=== PATIENT | female | born 1990 | race Two or more races ===

== ENCOUNTER 2016-08-26 15:42 | Emergency (ER) | payer OTHER ==
[~2016-08-26] VITALS: Ht 167.6 cm; Wt 90.7 kg
[2016-08-26 16:08] VITALS: BP 111/64
[2016-08-26] MEDS ORDERED: AMOX-999 PO (16:11)
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
--- NOTE | 2016-08-26 18:01 | NUR ---
DR PRIEST ASSESSING THE PT AT BEDSIDE
[2016-08-26] MEDS ORDERED: LIDOCAINE 1% ED 50 ML ONE (18:18)
--- NOTE | 2016-08-26 19:08 | NUR ---
DR PRIEST AT BEDSIDE REMOVING SEWING NEEDLE ON RIGHT FOOT
[2016-08-26] MEDS ORDERED: BACITRACIN OINT 500 UNITS/GM PKT TP ONE (19:17)
--- NOTE | 2016-08-26 19:19 | NUR ---
REPORT RECEIVED FROM FLORENTIN SHOEMAKER
[2016-08-26 19:33] VITALS: BP 110/58
--- NOTE | 2016-08-26 19:33 | NUR ---
Patient discharged with v/s stable. Written and verbal after care instructions given and explained. Patient alert, oriented and verbalized understanding of instructions. Wheel Chair Assisted with to car. All questions addressed prior to discharge. ID band removed. Patient advised to follow up with PMD. Rx of NORCO, MOTRIN given. Patient educated on indication of medication including possible reaction and side effects. Opportunity to ask questions provided and answered.
== END 2016-08-26 19:33 | disposition home or self-care (01) ==
LOC: MED 15:42
DX: S90.851A Superficial foreign body, right foot, initial encounter (principal); W46.0XXA Contact with hypodermic needle, initial encounter; Y93.01 Activity, walking, marching and hiking; Y92.89 Other specified places as the place of occurrence of the external cause; Y99.8 Other external cause status
CPT/HCPCS: 73660; 99284; J2001

== ENCOUNTER 2016-09-08 19:56 | Emergency (ER) | payer OTHER ==
[~2016-09-08] VITALS: Ht 162.6 cm; Wt 90.7 kg
[~2016-09-08 19:56] MED LIST: AMOX-999 PO
[2016-09-08 20:20] VITALS: BP 124/72
--- NOTE | 2016-09-08 21:21 | NUR ---
TO ER BED 6
[2016-09-08] MEDS ORDERED: LIDOCAINE/EPI 1% 1:100000 20 ML VIAL INJ ONE (21:22)
[2016-09-08] MEDS ORDERED: NEOMYCIN/POLYMYXIN/BACITRACIN 0.9 GM/1 PKT TP ONE (21:23)
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
--- NOTE | 2016-09-08 22:45 | NUR ---
Patient discharged with v/s stable. Written and verbal after care instructions given and explained. Patient alert, oriented and verbalized understanding of instructions. Ambulatory with steady gait. All questions addressed prior to discharge. ID band removed. Patient advised to follow up with PMD. Rx of MOTRIN 600MG given. Patient educated on indication of medication including possible reaction and side effects. Opportunity to ask questions provided and answered.
[2016-09-08 23:12] VITALS: BP 122/71
== END 2016-09-08 22:45 | disposition home or self-care (01) ==
LOC: MED 19:56
DX: S41.111A Laceration without foreign body of right upper arm, initial encounter (principal); W31.89XA Contact with other specified machinery, initial encounter; Y93.89 Activity, other specified; Y92.89 Other specified places as the place of occurrence of the external cause; Y99.8 Other external cause status
CPT/HCPCS: 12032; 99284; J2001

== ENCOUNTER 2016-09-21 17:22 | Emergency (ER) | payer OTHER ==
[~2016-09-21] VITALS: Ht 162.6 cm; Wt 90.7 kg
[~2016-09-21 17:22] MED LIST changes: -AMOX-999 PO; +AUGMENTIN 500 M1 TAB PO
[2016-09-21 17:38] VITALS: BP 123/65
--- NOTE | 2016-09-21 19:43 | NUR ---
Note aguila in [facility] - 09/21/16 at 1950 by HANH PT TAKEN TO [facility] Addendum: 09/21/16 at 1949 by HANH Oswaldo sheehan in [facility] - 09/21/16 at 1950 by EVELYNEO PT TAKEN TO 3
--- NOTE | 2016-09-21 20:15 | NUR ---
[place] to right axilla removed. Alonzo well.
--- NOTE | 2016-09-21 20:30 | NUR ---
Patient discharged with v/s stable. Written and verbal after care instructions given and explained. Patient verbalized understanding. Ambulatory with steady gait. All questions addressed prior to discharge. Advised to follow up with PMD.
== END 2016-09-21 20:30 | disposition home or self-care (01) ==
LOC: MED 17:22
DX: L98.499 Non-pressure chronic ulcer of skin of other sites with unspecified severity (principal); Z48.01 Encounter for change or removal of surgical wound dressing

== ENCOUNTER 2016-10-19 20:35 | Emergency (ER) | payer OTHER ==
[~2016-10-19] VITALS: Ht 162.6 cm; Wt 90.7 kg
[2016-10-19 20:56] VITALS: BP 114/69
--- NOTE | 2016-10-19 22:15 | NUR ---
TO ER BED 5
--- NOTE | 2016-10-19 22:15 | NUR ---
PATIENT PRESENTS TO ED WITH C/O DIZZINESS AND GEN WEAKNESS X 2 DAYS. . PT DENIES N/V/D; SKIN IS PINK/WARM/DRY; AAOX4 WITH EVEN AND STEADY GAIT; LUNGS CLEAR BL; HR EVEN AND REGULAR; PT DENIES ANY FEVER, CP, SOB, OR COUGH AT THIS TIME; PATIENT STATES PAIN OF 0/10 AT THIS TIME; VSS; PATIENT POSITIONED FOR COMFORT; HOB ELEVATED; BEDRAILS UP X2; BED DOWN. ER MD MADE AWARE OF PT STATUS.
[2016-10-19] MEDS ORDERED: NACL 0.9% 1,000 ML IV ONE (23:25)
[2016-10-19 23:37] LABS: BASOPHILS # (AUTO) 0.3 K/uL (0.00-0.22); BASOPHILS % (AUTO) 3.4 % (0.0-2.0); EOSINOPHILS # (AUTO) 0.2 K/uL (0-0.4); EOSINOPHILS % (AUTO) 2.4 % (0.0-4.0); HEMATOCRIT 37.6 % (36-48); HEMOGLOBIN 11.9 g/dL (12.0-16.0); LYMPHOCYTES # (AUTO) 3.6 K/uL (2.5-16.5); LYMPHOCYTES % (AUTO) 42.7 % (20.5-51.1); MEAN CORPUSCULAR HEMOGLOBIN 29 pg (27-31); MEAN CORPUSCULAR HGB CONC 32 g/dL (33-37); MEAN CORPUSCULAR VOLUME 92 fL (80-94); NEUTROPHILS # (AUTO) 3.4 K/uL (1.8-7.7); NEUTROPHILS % (AUTO) 39.5 % (42.2-75.2); PLATELET COUNT (AUTO) 363 K/uL (140-450); RED BLOOD CELL COUNT(AUTO) 4.08 MIL/uL (4.20-5.40); RED CELL DISTRIBUTION WIDTH 13.9 % (11.6-13.7); WHITE BLOOD COUNT (AUTO) 8.5 K/uL (4.8-10.8)
[2016-10-19 23:54] LABS: ALBUMIN 3.5 g/dL (3.4-5.0); ANION GAP 11.6 (8-16); CALCIUM 8.5 mg/dL (8.5-10.1); CARBON DIOXIDE 28.8 mmol/L (21-32); CREATININE 0.7 mg/dL (0.6-1.3); POTASSIUM 4.4 mmol/L (3.5-5.1); TOTAL BILIRUBIN 0.2 mg/dL (0.0-1.0); TOTAL PROTEIN, SERUM 7.2 g/dL (6.4-8.2)
[2016-10-19 23:55] LABS: INR 1.1 (0.8-1.2); PARTIAL THROMBOPLASTIN TIME 28.1 secs (22-35.6)
--- NOTE | 2016-10-20 00:32 | NUR ---
IV removed, catheter intact and site benign. Applied folded 4x4 gauze and tape to stop bleeding.
--- NOTE | 2016-10-20 00:33 | NUR ---
Patient discharged with v/s stable. Written and verbal after care instructions given and explained. Patient alert, oriented and verbalized understanding of instructions. Ambulatory with steady gait. All questions addressed prior to discharge. ID band removed. Patient advised to follow up with PMD. Rx of MECLIZINE 25MG given. Patient educated on indication of medication including possible reaction and side effects. Opportunity to ask questions provided and answered.
[2016-10-20 00:34] VITALS: BP 118/84
== END 2016-10-20 00:34 | disposition home or self-care (01) ==
LOC: MED 20:35
DX: R42 Dizziness and giddiness (principal)
CPT/HCPCS: 36415; 80053; 81002; 81025; 85025; 85610; 85730; 96360; 99284; J7030

== ENCOUNTER 2017-09-29 19:43 | Emergency (ER) | payer OTHER ==
[~2017-09-29] VITALS: Ht 175.3 cm; Wt 88.5 kg
[2017-09-29 19:45] VITALS: BP 145/79
[2017-09-29] MEDS ORDERED: MECLIZINE 25 MG TAB PO ONE (20:35)
[2017-09-29] MEDS ORDERED: ACETAMINOPHEN EXTRA STRENGTH 500 MG TAB PO ONE (20:35)
[2017-09-29 20:58] LABS: APPEARANCE,URINE CLEAR (CLEAR); BILIRUBIN,URINE NEGATIVE (NEGATIVE); BLOOD, URINE TRACE-I (NEGATIVE); LEUKOCYTE ESTERASE ,URINE NEGATIVE (NEGATIVE); NITRITE, URINE NEGATIVE (NEGATIVE); PH,URINE 5.5 (5.0-9.0); UGLUCOSE NEGATIVE (NEGATIVE)
[2017-09-29 21:07] LABS: COLOR,URINE STRAW (YELLOW)
[2017-09-29 21:08] LABS: BARBITURATE, URINE NEG. ng/ml (NEG <=200); BENZODIAZEPINE, URINE NEG. ng/mL (NEG <=200); CANNABINOID, URINE NEG. ng/mL (NEG <=50); COCAINE, URINE NEG. ng/mL (NEG <=300); OPIATE, URINE NEG. ng/mL (NEG <=2000); PHENCYCLIDINE SCREEN,URINE NEG. ng/mL (NEG <=25)
[2017-09-29 21:21] LABS: RBC,URINE NONE SEEN /HPF (0-5); WBC,URINE NONE SEEN /HPF (0-5)
[2017-09-29 21:45] VITALS: BP 139/81
== END 2017-09-29 21:45 | disposition home or self-care (01) ==
LOC: MED 19:43
DX: R07.89 Other chest pain (principal); F41.9 Anxiety disorder, unspecified; F17.210 Nicotine dependence, cigarettes, uncomplicated
CPT/HCPCS: 80305; 81001; 81025; 99284; J8597

== ENCOUNTER 2017-10-20 13:12 | Emergency (ER) | payer OTHER ==
[~2017-10-20] VITALS: Ht 162.6 cm; Wt 81.6 kg
[2017-10-20 13:35] VITALS: BP 128/55
--- NOTE | 2017-10-20 14:40 | NUR ---
NO ANSWER WHEN CALLED FOR BED
--- NOTE | 2017-10-20 14:47 | NUR ---
NO ANSWER WHEN CALLED FOR BED
--- NOTE | 2017-10-20 14:47 | NUR ---
Slick sheehan in ED - 10/20/17 at 1502 by MEDPriscilaKD PATIENT LEFT WITHOUT BEING SEEN BY . NO FURTHER CARE PROVIDED FOR PATIENT.
--- NOTE | 2017-10-20 14:50 | NUR ---
PT RETURNED TO ER LOBBY. WAITING TO BE CALLED FOR BED
--- NOTE | 2017-10-20 15:00 | NUR ---
PATIENT AMBULATED TO BED 11.
--- NOTE | 2017-10-20 15:04 | NUR ---
27 YO F PT BIB SELF W/ C/O CENTRALLY LOCATED CHEST PAIN, NON-RADIATING 9/10 SHARP/THROBBING SINCE LAST NIGHT AROUND 11PM, WITH SOB. DENIES N/V/DIZZINESS. DENIES FEVER/CHILLS/SWEATS. SKIN IS WARM AND DRY TO THE TOUCH. PT PRESENTS WITH A RASH ON HER BREASTS BILATERALLY, BUT REPORTS TO WEARING A TIGHT BRA THE LAST FEW DAYS. PT AAO X4. GCS 15. CMS INTACT. RR EVEN AND UNLABORED. LUNGS BILATERALLY CLEAR. ABD SOFT, NON-TENDER. ER MD CLARK NOTIFIED. PT NEEDS MET. SAFETY PRECAUTIONS IN PLACE. WILL CONTINUE TO MONITOR.
[2017-10-20] MEDS ORDERED: ONDANSETRON 4 MG/2 ML VIAL IVP ONE (15:25)
[2017-10-20] MEDS ORDERED: MORPHINE SULFATE 2 MG/ML SYR IVP ONE (15:25)
[2017-10-20] MEDS ORDERED: LORazepam 2 MG/ML VIAL IVP ONE (15:25)
--- NOTE | 2017-10-20 15:43 | NUR ---
xray at bedside at this time.
[2017-10-20 16:06] LABS: BASOPHILS % (AUTO) 0.7 % (0.0-2.0); EOSINOPHILS # (AUTO) 0.1 K/uL (0-0.4); EOSINOPHILS % (AUTO) 0.9 % (0.0-4.0); HEMATOCRIT 40.7 % (36-48); HEMOGLOBIN 13.9 g/dL (12.0-16.0); LYMPHOCYTES # (AUTO) 2.4 K/uL (2.5-16.5); LYMPHOCYTES % (AUTO) 35.2 % (20.5-51.1); MEAN CORPUSCULAR HEMOGLOBIN 31 pg (27-31); MEAN CORPUSCULAR HGB CONC 34 g/dL (33-37); MEAN CORPUSCULAR VOLUME 91.7 fL (80-94); MONOCYTES # (AUTO) 0.6 K/uL (0.8-1.0); MONOCYTES % (AUTO) 9.4 % (1.7-9.3); NEUTROPHILS # (AUTO) 3.6 K/uL (1.8-7.7); NEUTROPHILS % (AUTO) 53.8 % (42.2-75.2); PLATELET COUNT (AUTO) 338 K/uL (140-450); RED BLOOD CELL COUNT(AUTO) 4.44 MIL/uL (4.20-5.40); RED CELL DISTRIBUTION WIDTH 13.4 % (11.6-13.7); WHITE BLOOD COUNT (AUTO) 6.7 K/uL (4.8-10.8)
[2017-10-20 16:33] LABS: ANION GAP 12.2 (8-16); CARBON DIOXIDE 28.6 mmol/L (21-32); CREATININE 0.7 mg/dL (0.6-1.3); POTASSIUM 3.8 mmol/L (3.5-5.1)
[2017-10-20 16:37] LABS: PROTHROMBIN TIME 10.5 secs (10.8-13.4)
[2017-10-20 16:39] LABS: ALBUMIN 3.7 g/dL (3.4-5.0); TOTAL BILIRUBIN 0.5 mg/dL (0.0-1.0)
--- NOTE | 2017-10-20 16:50 | NUR ---
PT RESTING COMFORTABLY IN [facility] AT THIS TIME. WILL CONTINUE TO MONITOR.
--- NOTE | 2017-10-20 17:10 | NUR ---
[facility] and rr even and unlabored. will continue to monitor.
--- NOTE | 2017-10-20 18:44 | NUR ---
PT RESTING COMFORTABLY IN [facility] AT THIS TIME WAITING FOR D/C PAPERWORK.
[2017-10-20 19:29] VITALS: BP 116/61
--- NOTE | 2017-10-20 19:29 | NUR ---
Patient discharged with v/s stable. Written and verbal after care instructions given and explained. Patient alert, oriented and verbalized understanding of instructions. Ambulatory with steady gait. All questions addressed prior to discharge. ID band removed. Patient advised to follow up with PMD. Rx of Clotrimazole and Omeprazole given. Patient educated on indication of medication including possible reaction and side effects. Opportunity to ask questions provided and answered.
== END 2017-10-20 19:29 | disposition home or self-care (01) ==
LOC: MED 13:12
DX: R07.89 Other chest pain (principal); R06.02 Shortness of breath; R21 Rash and other nonspecific skin eruption
CPT/HCPCS: 36415; 71045; 76705; 80053; 81025; 84484; 85025; 85379; 85610; 85730; 93005; 96374; 96375; 99285; J2060; J2270; J2405; Q0092

== ENCOUNTER 2018-03-28 07:15 | Emergency (ER) | payer OTHER ==
[~2018-03-28] VITALS: Ht 162.6 cm; Wt 86.2 kg
[2018-03-28 07:18] VITALS: BP 126/75
--- NOTE | 2018-03-28 07:30 | NUR ---
PATIENT PRESENTS TO ED WITH C/O ABDOMINAL PAIN. DENIES N/V/D; SKIN IS PINK/WARM/DRY; AAOX4 WITH EVEN AND STEADY GAIT; LUNGS CLEAR BL; HR EVEN AND REGULAR; PT DENIES ANY FEVER, CP, SOB, OR COUGH AT THIS TIME; PATIENT STATES PAIN OF 10/10 AT THIS TIME; VSS; PATIENT POSITIONED FOR COMFORT; HOB ELEVATED; BEDRAILS UP X2; BED DOWN. ER MD MADE AWARE OF PT STATUS.
--- NOTE | 2018-03-28 08:00 | NUR ---
Patient being evaluated by physician at bedside.
[2018-03-28] MEDS ORDERED: FAMOTIDINE 20 MG TAB PO ONE (08:10)
[2018-03-28] MEDS ORDERED: ALUMINUM HYD/MAG/SIMETHICONE 30 ML UDC PO ONE (08:10)
[2018-03-28 08:33] VITALS: BP 118/72
== END 2018-03-28 08:33 | disposition home or self-care (01) ==
LOC: MED 07:15
DX: K29.70 Gastritis, unspecified, without bleeding (principal)
CPT/HCPCS: 81002; 81025; 99283

== ENCOUNTER 2018-07-04 10:02 | Emergency (ER) | payer OTHER ==
[~2018-07-04] VITALS: Ht 162.6 cm; Wt 94.1 kg
[2018-07-04 10:56] VITALS: BP 140/67
--- NOTE | 2018-07-04 11:04 | NUR ---
AFTER PROVIDING URINE SAMPLE, PT AMBULATES BACK TO THE LOBBY WITHOUT DIFFICULTY
--- NOTE | 2018-07-04 12:11 | NUR ---
patient ambulated to er bed 12
--- NOTE | 2018-07-04 12:16 | NUR ---
PT CAME TRO ER W/ C/O BACK PAIN X 2 DAYS; DENIES ANY TRAUMA / INJURY; DENIES DYSURIA/FREQUENCY OF URINATION; DENIES NAUSEA OR VOMITING; DENIES ANY MEDICAL HX; SAFETY MEASURES INSTITUTED;NEEDS ATTENDED; ER NOTIIED.
--- NOTE | 2018-07-04 12:45 | NUR ---
MEDICATIONS GIVEN ORDERED. CHARTED ON PAPER CHART.
[2018-07-04] MEDS ORDERED: traMADol 50 MG TAB ONE ×2 (12:49→14:16)
[2018-07-04] MEDS ORDERED: KETOROLAC 60 MG/2 ML VIAL IM ONE ×2 (12:49→14:17)
[2018-07-04 14:30] VITALS: BP 135/68
--- NOTE | 2018-07-04 14:55 | NUR ---
Note shanmary in EDM - 07/04/18 at 1456 by DOUG Patient discharged with v/s stable. Written and verbal after care instructions given and explained. Patient alert, oriented and verbalized understanding of instructions. Ambulatory with steady gait. All questions addressed prior to discharge. ID band removed. Patient advised to follow up with PMD. Rx given. Patient educated on indication of medication including possible reaction and side effects. Opportunity to ask questions provided and answered.
== END 2018-07-04 14:30 | disposition home or self-care (01) ==
LOC: MED 10:02
DX: S33.5XXA Sprain of ligaments of lumbar spine, initial encounter (principal); G89.29 Other chronic pain; X58.XXXA Exposure to other specified factors, initial encounter; Y93.89 Activity, other specified; Y92.89 Other specified places as the place of occurrence of the external cause; Y99.8 Other external cause status
CPT/HCPCS: 81002; 81025; 99283; J1885

== ENCOUNTER 2019-01-06 09:50 | Emergency (ER) | payer OTHER ==
[~2019-01-06] VITALS: Ht 162.6 cm; Wt 96.2 kg
[2019-01-06 09:53] VITALS: BP 125/79
--- NOTE | 2019-01-06 09:59 | NUR ---
PT AMBULATED TO ER BED 6
--- NOTE | 2019-01-06 10:11 | NUR ---
C/O PANIC ATTACK TODAY WHILE AT WORK. PT STATES SHE HAS NOT BEEN TAKING HER MEDICATION FOR SCHIZOPHRENIA (ATIVAN, FLUOXOTINE, AND RISPERIDONE) DUE TO LACK OF PCP. PT STATES SHE WORKS A [employer] FOR [employer] AND IS UNDER ALOT OF STRESS AT WORK. BREATHING UNLABORED/REGULAR, HR WITHIN NORMAL RANGE, NO CARPOPEDAL SPASMS NOTED. PT ABLE TO HOLD AN APPROPRIATE CONVERSATION. PT APPEARS ANXIOUS AND TEARFUL.
--- NOTE | 2019-01-06 10:11 | NUR ---
DR. VAZQUEZ BEDSIDE EVALUATING PT
[2019-01-06] MEDS ORDERED: PANTOPRAZOLE 40 MG INJ VIAL IVP ONE (10:20)
[2019-01-06] MEDS ORDERED: ONDANSETRON 4 MG/2 ML VIAL IVP ONE (10:20)
[2019-01-06] MEDS ORDERED: LORazepam 2 MG/ML VIAL IM ONE (10:25)
[2019-01-06 10:46] VITALS: BP 125/79
--- NOTE | 2019-01-06 10:46 | NUR ---
Patient discharged with v/s stable. Written and verbal after care instructions given and explained. Patient alert, oriented and verbalized understanding of instructions. Ambulatory with steady gait. All questions addressed prior to discharge. ID band removed. Patient advised to follow up with PMD. Rx of ATIVAN given. Patient educated on indication of medication including possible reaction and side effects. Opportunity to ask questions provided and answered. PT BEING PICKED UP BY FRIEND.
== END 2019-01-06 10:46 | disposition home or self-care (01) ==
LOC: MED 09:50
DX: F41.9 Anxiety disorder, unspecified (principal); F20.9 Schizophrenia, unspecified; F32.9 Major depressive disorder, single episode, unspecified
CPT/HCPCS: 81025; 96372; 99284; J2060

== ENCOUNTER 2019-04-06 16:23 | Emergency (ER) | payer MEDICARE, OTHER ==
[~2019-04-06] VITALS: Ht 162.6 cm; Wt 90.7 kg
[2019-04-06 16:35] VITALS: BP 120/82
--- NOTE | 2019-04-06 16:41 | NUR ---
PT AMBULATED TO RESTROOM FOR URINE SAMPLE
--- NOTE | 2019-04-06 16:45 | NUR ---
PT TAKEN TO ER BED 05
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
--- NOTE | 2019-04-06 18:15 | NUR ---
Patient being evaluated by Dr. vogel at this time.
[2019-04-06] MEDS ORDERED: cefTRIAXone 1,000 MG in LIDOCAINE MPF 1% 2.1 ML IM ONE (18:25)
[2019-04-06] MEDS ORDERED: AZITHROMYCIN 250 MG TAB PO ONE (18:25)
--- NOTE | 2019-04-06 18:38 | NUR ---
SAMPLE COLLECTED AND TAKEN TO THE LAB FOR GC CHLAMYDIA.
[2019-04-06 18:53] VITALS: BP 130/80
--- NOTE | 2019-04-06 18:53 | NUR ---
Patient discharged by Dr. Parekh with v/s stable. Written and verbal after care instructions given and explained. Patient alert, oriented and verbalized understanding of instructions by Dr. Parekh. Ambulatory with steady gait. All questions addressed prior to discharge. ID band removed. Patient advised to follow up with PMD. Rx of given. Patient educated on indication of medication including possible reaction and side effects. Opportunity to ask questions provided and answered by Dr. Parekh.
[2019-04-15 10:08] LABS: CHLAMYDIA TRACHOMATIS AMP DNA NEGATIVE (NEGATIVE)
== END 2019-04-06 18:53 | disposition home or self-care (01) ==
LOC: MED 16:23
DX: K62.89 Other specified diseases of anus and rectum (principal)
CPT/HCPCS: 36415; 81002; 81025; 96372; 99283; J0696; J2001; 87491

== ENCOUNTER 2019-04-23 21:37 | Emergency (ER) | payer MEDICARE, OTHER ==
[~2019-04-23] VITALS: Ht 162.6 cm; Wt 90.7 kg
[2019-04-23 21:50] VITALS: BP 129/82
--- NOTE | 2019-04-23 21:50 | NUR ---
PT AMBULATED TO ER BED 05
--- NOTE | 2019-04-23 21:58 | NUR ---
28 Y/O FEMALE C/O CHILLS, BODY ACHES, SORE THROAT AND DRY COUGH X 4 DAYS.PT PRESENTS AFEBRILE AT THIS TIME. RR EVEN AND UNLABORED. PT STATES 6/10 ACHING PAIN THROUGHOUT ENTIRE BODY. PT SITTING IN BED CALM AND PLEASANT. BED LOCKED AND IN LOW POSITION. VSS. MEDHX: DENIES ALLERGIES: NKA
--- NOTE | 2019-04-23 22:40 | NUR ---
PT RESTING IN BED ON CELLPHONE. RR EVEN AND UNLABORED. PT CALM AND PLEASANT. X1 SIDE RAIL RAISED. VSS. MOTHER AT BEDSIDE
[2019-04-23] MEDS ORDERED: KETOROLAC 30 MG/ML VIAL IM ONE (23:00)
--- NOTE | 2019-04-23 23:30 | NUR ---
PT STATES DECREASE IN PAIN AFTER MEDICATION.
--- NOTE | 2019-04-23 23:39 | NUR ---
Patient discharged with v/s stable. Written and verbal after care instructions given and explained. Patient alert, oriented and verbalized understanding of instructions. Ambulatory with steady gait. All questions addressed prior to discharge. ID band removed. Patient advised to follow up with PMD. Rx of NAPROSYN, TAMIFLU, AND AXETAMINOPHEN given. Patient educated on indication of medication including possible reaction and side effects. Opportunity to ask questions provided and answered.
[2019-04-23 23:40] VITALS: BP 129/82
== END 2019-04-23 23:40 | disposition home or self-care (01) ==
LOC: MED 21:37
DX: J11.1 Influenza due to unidentified influenza virus with other respiratory manifestations (principal)
CPT/HCPCS: 87804; 96372; 99283; J1885

== ENCOUNTER 2019-10-14 17:47 | Emergency (ER) | payer MEDICARE, OTHER ==
[~2019-10-14] VITALS: Ht 162.6 cm; Wt 90.7 kg
[2019-10-14 18:03] VITALS: BP 134/80
--- NOTE | 2019-10-14 18:12 | NUR ---
C/O RECURRING THROAT PAIN "MONTHS"---MULTIPLE ANTIBIOTIC THERAPY FOR COMPLAINT LAST TIME TOOK ANTIBIOTIC X 1 MONTH AGO-- NO PURULENT DRAINAGE NO INFLAMMED SWELLING NOTED BACK OF THROAT NOTED AT THIS TIME. FULL CLEAR SPEECH, NO DROOLING, NO MUFFLED VOICE NOTED.
[2019-10-14] MEDS ORDERED: KETOROLAC 30 MG/ML VIAL IM ONE (18:15)
--- NOTE | 2019-10-14 18:22 | NUR ---
PATIENT ELOPED FROM FACILITY. DISCHARGE INSTRUCTIONS NOT GIVEN TO PATIENT. DR. horton NOTIFIED.
== END 2019-10-14 18:22 | disposition left against medical advice (07) ==
LOC: MED 17:47
DX: J02.0 Streptococcal pharyngitis (principal); F17.210 Nicotine dependence, cigarettes, uncomplicated
CPT/HCPCS: 99281

== ENCOUNTER 2021-01-20 10:09 | Emergency (ER) | payer MEDICARE, OTHER ==
[~2021-01-20] VITALS: Ht 162.6 cm; Wt 100.7 kg
[2021-01-20 10:35] VITALS: BP 118/66
--- NOTE | 2021-01-20 10:42 | NUR ---
PT AMBULATED TO ER BED 3.
--- NOTE | 2021-01-20 10:44 | NUR ---
INSURANCE FOLLOW UP REPRESENTATIVE AT PT BEDSIDE FOR FURTHER EVALUATION.
--- NOTE | 2021-01-20 10:48 | NUR ---
Pt taken to bed 3.
--- NOTE | 2021-01-20 10:50 | NUR ---
30 Y/O FEMALE C/O GENERALIZED ABD PAIN 12/15 DESCRIBES CRAMPING X1DAY. PT STATES SHE ATE [employer] X2DAYS AND "THINKS SHE HAS FOOD POISONING". PT STATES +N/+D, DENIES VOMITING, DENIES FEVER/CHILLS. ABD IS SOFT, ROUND, NON-TENDER TO PALPATION, BOWEL SOUNDS ACTIVE X4, LAST BM 01/20/21. DENIES PMH NKA
[2021-01-20 10:55] LABS: BASOPHILS % (AUTO) 0.4 % (0.0-2.0); EOSINOPHILS # (AUTO) 0.1 K/uL (0-0.4); EOSINOPHILS % (AUTO) 1.9 % (0.0-4.0); HEMATOCRIT 41.1 % (36-48); HEMOGLOBIN 13.8 g/dL (12.0-16.0); LYMPHOCYTES # (AUTO) 2.3 K/uL (2.5-16.5); LYMPHOCYTES % (AUTO) 30.9 % (20.5-51.1); MEAN CORPUSCULAR HEMOGLOBIN 31 pg (27-31); MEAN CORPUSCULAR HGB CONC 34 g/dL (33-37); MEAN CORPUSCULAR VOLUME 93.3 fL (80-94); MONOCYTES # (AUTO) 0.6 K/uL (0.8-1.0); MONOCYTES % (AUTO) 7.6 % (1.7-9.3); NEUTROPHILS # (AUTO) 4.4 K/uL (1.8-7.7); NEUTROPHILS % (AUTO) 59.2 % (42.2-75.2); PLATELET COUNT (AUTO) 383 K/uL (140-450); RED CELL DISTRIBUTION WIDTH 13.6 % (11.6-13.7); WHITE BLOOD COUNT (AUTO) 7.4 K/uL (4.8-10.8)
[2021-01-20 10:57] LABS: APPEARANCE,URINE CLEAR (CLEAR); BILIRUBIN,URINE NEGATIVE (NEGATIVE); BLOOD, URINE TRACE-I (NEGATIVE); COLOR,URINE YELLOW (YELLOW); LEUKOCYTE ESTERASE ,URINE NEGATIVE (NEGATIVE); NITRITE, URINE NEGATIVE (NEGATIVE); UGLUCOSE NEGATIVE (NEGATIVE)
[2021-01-20 11:00] LABS: RBC,URINE 0-5 /HPF (0-5); WBC,URINE 0-5 /HPF (0-5)
[2021-01-20 11:19] LABS: ALBUMIN 3.3 g/dL (3.4-5.0); ANION GAP 13.3 (8-16); CARBON DIOXIDE 27.5 mmol/L (21-32); CREATININE 0.6 mg/dL (0.6-1.3); POTASSIUM 3.8 mmol/L (3.5-5.1); TOTAL BILIRUBIN 0.2 mg/dL (0.0-1.0)
[2021-01-20] MEDS ORDERED: DICYCLOMINE 20 MG/2 ML VIAL IM ONE (11:25)
[2021-01-20] MEDS ORDERED: MAG-27 PO (11:49)
[2021-01-20] MEDS ORDERED: BEN10 PO (11:49)
[2021-01-20 11:57] VITALS: BP 119/72
--- NOTE | 2021-01-20 11:58 | NUR ---
Patient discharged with v/s stable. Written and verbal after care instructions given ABD PAIN AND DIARRHEA and explained. Patient alert, oriented and verbalized understanding of instructions. Ambulatory with steady gait. All questions addressed prior to discharge. ID band removed. Patient advised to follow up with PMD. Rx of BENTYL AND MYLANTA given. Patient educated on indication of medication including possible reaction and side effects. Opportunity to ask questions provided and answered.
== END 2021-01-20 11:58 | disposition home or self-care (01) ==
LOC: MED 10:09
DX: R19.7 Diarrhea, unspecified (principal); R10.9 Unspecified abdominal pain; R11.0 Nausea
CPT/HCPCS: 36415; 80053; 81001; 81025; 83690; 85025; 96372; 99283; J0500

== ENCOUNTER 2021-02-27 12:05 | Emergency (ER) | payer MEDICARE, OTHER ==
[~2021-02-27] VITALS: Ht 162.6 cm; Wt 99.3 kg
[~2021-02-27 12:05] MED LIST changes: -AUGMENTIN 500 M1 TAB PO; +BEN10 PO; +MAG-27 PO
[2021-02-27 12:39] VITALS: BP 120/63
--- NOTE | 2021-02-27 12:45 | NUR ---
PT SENT TO LOBBY
[2021-02-27] MEDS ORDERED: IBUP-2213 PO (12:58)
[2021-02-27] MEDS ORDERED: FLONAS NS (12:58)
[2021-02-27 13:11] VITALS: BP 120/63
--- NOTE | 2021-02-27 13:11 | NUR ---
Patient discharged with v/s stable. Written and verbal after care instructions given and explained. Patient alert, oriented and verbalized understanding of instructions. Ambulatory with steady gait. All questions addressed prior to discharge. ID band removed. Patient advised to follow up with PMD. Rx of FLONASE NASAL AND IBUPROFEN given. Patient educated on indication of medication including possible reaction and side effects. Opportunity to ask questions provided and answered.
--- NOTE | 2021-02-27 13:11 | NUR ---
NO NURSING INTERVENTIONS IMPLEMENTED
== END 2021-02-27 13:11 | disposition home or self-care (01) ==
LOC: MED 12:05
DX: J32.9 Chronic sinusitis, unspecified (principal); Z79.1 Long term (current) use of non-steroidal anti-inflammatories (NSAID); Z79.899 Other long term (current) drug therapy
CPT/HCPCS: 99283

== ENCOUNTER 2021-06-21 17:09 | Emergency (ER) | payer MEDICARE, OTHER ==
[~2021-06-21] VITALS: Ht 162.6 cm; Wt 100.7 kg
[~2021-06-21 17:09] MED LIST changes: +FLONAS NS; +IBUP-2213 PO
[2021-06-21 17:37] VITALS: BP 106/74
[2021-06-21] MEDS ORDERED: CYCLOBENZAPRINE 10 MG TAB PO ONE (17:45)
[2021-06-21] MEDS ORDERED: KETOROLAC 30 MG/ML VIAL IM ONE (17:45)
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
[2021-06-21] MEDS ORDERED: NAPR-54 PO (19:00)
[2021-06-21] MEDS ORDERED: CYCL-711 PO (19:00)
[2021-06-21 19:41] VITALS: BP 106/74
== END 2021-06-21 19:41 | disposition home or self-care (01) ==
LOC: MED 17:09
DX: S39.012A Strain of muscle, fascia and tendon of lower back, initial encounter (principal); Z79.899 Other long term (current) drug therapy; V89.2XXA Person injured in unspecified motor-vehicle accident, traffic, initial encounter; Y93.89 Activity, other specified; Y92.89 Other specified places as the place of occurrence of the external cause; Y99.8 Other external cause status
CPT/HCPCS: 72072; 72110; 81002; 81025; 96372; 99284; J1885

== ENCOUNTER 2024-02-07 08:33 | Emergency (ER) | payer MEDICARE, MEDICAID ==
[~2024-02-07] VITALS: Ht 162.6 cm; Wt 95.3 kg
[~2024-02-07 08:33] MED LIST changes: +CYCL-711 PO; +NAPR-337 PO
[2024-02-07 08:53] VITALS: BP 149/91; PULSE 69; RESP 18; TEMP 98; O2SAT 98
[2024-02-07] MEDS ORDERED: [UNRECOGNIZED DRUG - CODE] PO (09:38)
[2024-02-07] MEDS ORDERED: ZIPR40CA39 PO (09:38)
[2024-02-07] MEDS ORDERED: ATA25 PO (09:38)
[2024-02-07] MEDS: LORazepam 1 MG TAB PO ONE (09:59)
== END 2024-02-07 10:01 | disposition home or self-care (01) ==
LOC: MED 08:33
DX: F41.9 Anxiety disorder, unspecified (principal); R07.9 Chest pain, unspecified; R06.02 Shortness of breath; F17.200 Nicotine dependence, unspecified, uncomplicated; Z79.899 Other long term (current) drug therapy
CPT/HCPCS: 99283